=== PATIENT | female | born 1955 | race Hispanic/Latino ===

== ENCOUNTER 2020-05-17 16:41 | Emergency (ER) | payer MEDICARE ==
[~2020-05-17] VITALS: Ht 154.9 cm; Wt 83.9 kg
[2020-05-17] MEDS ORDERED: KETOROLAC TROMETHAMINE 60 MG/2 ML VIAL IM ONE (20:30)
== END 2020-05-17 21:00 | disposition home or self-care (01) ==
LOC: ER 17:22
DX: M54.41 Lumbago with sciatica, right side (principal); S00.83XA Contusion of other part of head, initial encounter; M25.551 Pain in right hip; W18.30XA Fall on same level, unspecified, initial encounter; I10 Essential (primary) hypertension; E11.9 Type 2 diabetes mellitus without complications
CPT/HCPCS: 70450; 72100; 73502; 99283; J1885